=== PATIENT | female | born 1925 | race Caucasian/White ===

== ENCOUNTER 2017-08-02 20:47 | Emergency (ER) | payer MEDICARE, BC ==
[~2017-08-02] VITALS: Ht 149.9 cm; Wt 44.1 kg
[~2017-08-02 20:47] MED LIST: ASPI325T6 PO; CALCIUM1 CAP PO; FOSAMAX 35MG35 MG PO; LISINOPRIL10 MG PO; NORCO 325 MG-51 TAB PO; OSCAL 500 TAB500 MG PO; PREVACID 15MG15 M1 PO; PRILOSEC 20MG20 MG PO; THERAGRAN TAB1 UDTAB PO; ULTRAM 50MG TAB50 MG PO; VITAMIN C500 MG PO; ZESTRIL 10MG10 MG PO; ZOFRAN 4MG T4 MG/TAB PO
[2017-08-02] MEDS ORDERED: PREDNISONE20 MG PO ×2 (21:12→21:52)
[2017-08-02 21:18] VITALS: BP 174/71; PULSE 74; TEMP 98.8
== END 2017-08-02 21:55 | disposition home or self-care (01) ==
LOC: COL.ER 20:47
DX: R21 Rash and other nonspecific skin eruption (principal); T36.1X5A Adverse effect of cephalosporins and other beta-lactam antibiotics, initial encounter; I10 Essential (primary) hypertension
CPT/HCPCS: J7512

== ENCOUNTER 2017-08-08 17:16 | Emergency (ER) | payer MEDICARE, BC ==
[~2017-08-08] VITALS: Ht 147.3 cm; Wt 43.2 kg
[~2017-08-08 17:16] MED LIST changes: +PREDNISONE20 MG PO
[2017-08-08 17:19] VITALS: BP 142/85; TEMP 99.1
[2017-08-08 18:08] LABS: BASO % 0.3 % (0.0-2.0); EOS # 0.2 (0.0-0.7); EOS % 1.6 % (0-4.0); GRAN # 7.4 (1.4-6.5); GRAN % 65.9 % (42.2-75.2); LYMPH # 2.6 (1.2-3.4); LYMPH % 23.4 % (20.0-51.0); MEAN CELL VOLUME 93 fl (80.0-100.0); MEAN CORPUSCULAR HEMOGLOBIN 30 pg (27.0-31.0); MEAN CORPUSCULAR HGB CONC 33 g/dl (33.0-37.0); MEAN PLATELET VOLUME 9.8 fl (7.4-10.4); MONO # 0.9 (0.1-0.6); MONO % 8.4 % (1.7-9.3); PLATELET COUNT 290 K/mm3 (130-400); RED BLOOD COUNT 3.99 M/mm3 (4.10-5.30); REDCELL DISTRIBUTION WIDTH-CV 12.9 % (11.5-14.5)
[2017-08-08 18:13] LABS: HEMATOCRIT 36.9 % (37.0-47.0)
[2017-08-08 18:16] LABS: COLLECTION METHOD CATHETER
[2017-08-08 18:23] LABS: MUCOUS Present /lpf; PH 5 (5-8); SQUAMOUS EPITHELIAL None Seen /hpf; URINE APPEARANCE Clear; URINE BACTERIA None Seen /hpf; URINE BILIRUBIN Negative (NEGATIVE); URINE BLOOD Negative (NEGATIVE); URINE COLOR Yellow; URINE GLUCOSE Negative (NEGATIVE); URINE KETONE Negative (NEGATIVE); URINE LEUKOCYTE ESTERASE Negative (NEGATIVE); URINE NITRATE Negative (NEGATIVE); URINE PROTEIN(semi-quant) Negative (NEGATIVE); URINE RBC 0-2 /hpf; URINE UROBILINOGEN Negative (NEGATIVE)
[2017-08-08 18:28] LABS: ALBUMIN 3.7 gm/dL (3.5-5.0); BILIRUBIN,TOTAL 0.4 mg/dL (0.0-1.0); CALCIUM 9.5 mg/dL (8.4-10.2); CREATININE, serum 0.97 mg/dL (0.52-1.25); POTASSIUM 4.2 mmol/L (3.4-5.0); TOTAL PROTEIN 6.8 gm/dL (6.4-8.2)
[2017-08-08 18:39] LABS: TROPONIN-I 0.013 ng/mL (0.000-0.034)
[2017-08-08 20:26] VITALS: PULSE 76
== END 2017-08-08 20:26 | disposition home or self-care (01) ==
LOC: COL.ER 17:16
PROVIDERS: Emergency Medicine
DX: F32.9 Major depressive disorder, single episode, unspecified (principal); T38.0X5A Adverse effect of glucocorticoids and synthetic analogues, initial encounter; Z90.710 Acquired absence of both cervix and uterus; Z90.89 Acquired absence of other organs; Z79.52 Long term (current) use of systemic steroids